=== PATIENT | male | born 1940 | race African-American/Black ===

== ENCOUNTER 2016-07-02 12:16 | Emergency (ER) | payer MEDICARE, MEDICAID ==
[~2016-07-02] VITALS: Ht 170.2 cm; Wt 65.8 kg
[~2016-07-02 12:16] MED LIST: IBUPROFEN600 MG ORAL; NORCO 5-325 TA1 EACH ORAL
[2016-07-02 12:32] VITALS: BP 130/78
[2016-07-02] MEDS ORDERED: DESCOVY 200-251 EACH PO (12:32)
[2016-07-02] MEDS ORDERED: KALETRA 200-501 EACH ORAL (12:32)
[2016-07-02] MEDS ORDERED: FOSAMAX70 MG ORAL (12:32)
[2016-07-02] MEDS ORDERED: TAMSULOSIN HCL0.4 MG ORAL (12:32)
[2016-07-02] MEDS ORDERED: PRAVACHOL20 MG ORAL (12:32)
[2016-07-02] MEDS ORDERED: VITAMIN D1000 UNI1 ORAL (12:32)
[2016-07-02 13:02] VITALS: BP 130/78
--- NOTE | 2016-07-02 13:08 | Emergency Room Report ---
History of Present Illness General Chief Complaint: Back Pain-No Injury Present Illness HPI 75-year-old male presents to emergency department complaining of exacerbation of low back pain. 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 Patient states that normally his back pain is managed well with Advil however over the last 3 days his pain persists despite taking Advil. 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 Patient denies fall or trauma. Patient denies numbness tingling or weakness. Patient states pain is relieved with walking around and is exacerbated with sitting and one position for too long. he states he's been using a hot pad at home with no relief. Patient denies recent spinal procedures he states that several years ago he was receiving cortisone injections but has not had any recently. Patient denies fevers chills nausea vomiting, weight loss or night sweats. Patient denies history of neoplastic disease. Denies numbness tingling or loss of sensation or gross motor movements of the extremities, incontinence of bowel or bladder. Denies CP , Palpitations, LOC, AMS, dizziness, Changes in Vision, Sensation, paresthesias , or a sudden severe headache. (Margo Cedillo P.A.) Allergies: Coded Allergies: No Known Allergies (Unverified , 09/13/13) Patient History Past Medical History: see triage record Past Surgical History: none Pertinent Family History: none Immunizations: UTD Reviewed Nursing Documentation: PMH: Agreed, PSxH: Agreed (Margo Cedillo P.A.) Nursing Documentation-PMH Hx Cardiac Problems: No Hx Pacemaker: No Hx Asthma: No Hx COPD: No Hx Diabetes: No Hx Cancer: No Hx Gastrointestinal Problems: No Hx Dialysis: No History Of Psychiatric Problem: No Hx Neurological Problems: No Hx Cerebrovascular Accident: No Hx Seizures: No (Margo Cedillo P.A.) Review of Systems All Other Systems: negative except mentioned in HPI (Margo Cedillo P.A.) Physical Exam Vital Signs Date Time Temp Pulse Resp B/P Pulse Ox O2 Delivery O2 Flow Rate FiO2 07/02/16 12:25 97.9 78 16 130/78 98 Room Air Sp02 EP Interpretation: reviewed, normal General Appearance: no apparent distress, alert, GCS 15, non-toxic Head: normocephalic, atraumatic Eyes: bilateral eye PERRL, bilateral eye normal inspection ENT: hearing grossly normal, normal pharynx, no angioedema, normal voice Neck: full range of motion, supple/symm/no masses Respiratory: chest non-tender, lungs clear, normal breath sounds, speaking full sentences Cardiovascular #1: regular rate, rhythm, no edema Gastrointestinal: normal bowel sounds, non tender, soft, no guarding, no rebound Rectal: deferred Genitourinary: normal inspection, no CVA tenderness Musculoskeletal: back normal, gait/station normal, normal range of motion, tender - sacral TTP more prominent of the left paraspinal area, however mild TTP to the midline and left paraspinal locations, no obvious deformity, no erythema no masses, Neurologic: alert, oriented x3, responsive, motor strength/tone normal, sensory intact, normal gait, speech normal Psychiatric: judgement/insight normal, memory normal, mood/affect normal, no suicidal/homicidal ideation Skin: normal color, no rash, warm/dry, well hydrated Lymphatic: no adenopathy (Margo Cedillo P.A.) Medical Decision Making PA Attestation Dr. mark is my supervising Physician whom patient management has been discussed with. (Margo Cedillo P.A.) Medicare Attestation The history of Jayce Cardenas has been reviewed and management options for him have been examined and discussed by Mike Singh. I have personally examined and interviewed the patient. (MIKE SINGH M.D.) Diagnostic Impression: Primary Impression: Back pain Qualified Codes: M54.5 - Low back pain; G89.29 - Other chronic pain ER Course 75-year-old male presents to emergency department complaining of exacerbation of low back pain. 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 Patient states that normally his back pain is managed well with Advil however over the last 3 days his pain persists despite taking Advil. 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 Patient denies fall or trauma. Patient denies numbness tingling or weakness. Patient states pain is relieved with walking around and is exacerbated with sitting and one position for too long. he states he's been using a hot pad at home with no relief. Patient denies recent spinal procedures he states that several years ago he was receiving cortisone injections but has not had any recently. Patient denies fevers chills nausea vomiting, weight loss or night sweats. Ddx considered but are not limited to Fracture, dislocation, contusion, Sprain/ Strain/Spasm, Epidural abscess, Neoplastic mets. Vital signs: are WNL, pt. is afebrile H&PE are most consistent with progressive exacerbation of chronic low back pain * CURES report reviewed, and pt. does not have any open or recent prescription for pain medications. ORDERS: - X-ray not required at this time due to progressive onset, no hx of trauma/ fall. no evidence of cauda equina, and no significant midline TTP. Relief with walking. ED INTERVENTIONS: - 50mg Tramadol PO DISCHARGE: At this time pt. is stable for d/c to home. Will provide printed patient care instructions, and any necessary prescriptions. Care plan and follow up instructions have been discussed with the patient prior to discharge. (Margo Cedillo) Last Vital Signs Date Time Temp Pulse Resp B/P Pulse Ox O2 Delivery O2 Flow Rate FiO2 07/02/16 12:32 97.9 75 16 130/78 98 Room Air (Margo Cedillo) Disposition: HOME, SELF-CARE Condition: Stable Scripts Lidocaine (Lidoderm) 1 Each Adh..patch 1 PATCH TOPIC BID, #7 PATCH 0 Refills Patch(es) may remain in place for up to 12 hours in any 24-hour period. Prov: Margo Cedillo 07/02/16 Tramadol Hcl* (ULTRAM*) 50 Mg Tablet 50 MG ORAL Q6H Y for For Pain, #10 TAB 0 Refills Prov: Margo Cedillo 07/02/16 Referrals: NON PHYSICIAN (PCP) Patient Instructions: Back Pain, Adult Additional Instructions: Take medications as directed. Follow up with PCP in 3-5 days Return sooner to ED if new symptoms occur, or current symptoms become worse. Do not drink alcohol, drive, or operate heavy machinery while taking Tramadol as this may cause drowsiness. - Please note that this Emergency Department Report was dictated using [employer] laborer technology software, occasionally this can lead to erroneous entry secondary to interpretation by the dictation equipment. Margo Cedillo Jul 02, 2016 13:08 MIKE SINGH M.D. Jul 08, 2016 19:02
[2016-07-02] MEDS ORDERED: TRAMADOL HCL50 MG ORAL (13:12)
[2016-07-02] MEDS ORDERED: LIDODERM700 M1 TOPIC (13:12)
[2016-07-02] MEDS ORDERED: traMADol 50mg tab ORAL ONE (13:15)
== END 2016-07-02 13:02 | disposition home or self-care (01) ==
LOC: EMR 12:41
DX: M54.5 Low back pain (principal); G89.29 Other chronic pain
CPT/HCPCS: 99284